=== PATIENT | female | born 1970 | race Caucasian/White ===

== ENCOUNTER 2022-04-11 23:57 | Emergency (ER) | payer SELFPAY ==
[~2022-04-11] VITALS: Ht 157.5 cm; Wt 55.6 kg
[2022-04-12 00:25] VITALS: BP 139/84
--- NOTE | 2022-04-12 00:31 | NUR ---
pt taken to bed 12.
--- NOTE | 2022-04-12 00:45 | NUR ---
GUILHERME EUBANKS ASSESSING PT AT BEDSIDE
[2022-04-12] MEDS ORDERED: LIDOCAINE MPF 1% 10 MG/ML VIAL INJ ONE (00:50)
[2022-04-12] MEDS ORDERED: cephALEXin 500 MG CAP PO ONE (00:50)
[2022-04-12] MEDS ORDERED: SULFAMETH/TRIMETH DS 800/160MG 1 TAB PO ONE (00:50)
--- NOTE | 2022-04-12 00:53 | NUR ---
52 Y.O F BIB SELF C/O 08/02 LEFT BIG TOE PAIN X5/16. PT STATES BACK IN FEBRUARY SHE HAD A PEDICURE DONE, PAIN BEGAN AND WOULD SUBSIDE, [place] TOE GOT WORSE. + SWELLING, WARM TO TOUCH AND REDNESS PRESENT. PT STATES HAS HAD NO FEVER. PT L BIG TOE HAS SLIGHT SWELLING AND PURPLE IN BOTTOM CORNER OF NAIL. PT RESTING IN BED. DENIES HX RX AND ALLERGIES
[2022-04-12] MEDS ORDERED: BACITRACIN OINT 500 UNITS/GM PKT TP ONE ×2 (01:20→01:24)
[2022-04-12] MEDS ORDERED: IBUP-2213 PO (01:22)
[2022-04-12] MEDS ORDERED: CEPH500C16 PO (01:22)
[2022-04-12] MEDS ORDERED: SULF-59 PO (01:22)
[2022-04-12 01:33] VITALS: BP 139/84
--- NOTE | 2022-04-12 01:34 | NUR ---
Patient discharged with v/s stable. Written and verbal after care instructions given and explained. Patient alert, oriented and verbalized understanding of instructions. Ambulatory with steady gait. All questions addressed prior to discharge. ID band removed. Patient advised to follow up with PMD. Rx of KEFLEX, IBUPROPHEN, AND BACTRIM given. Patient educated on indication of medication including possible reaction and side effects. Opportunity to ask questions provided and answered.
== END 2022-04-12 01:34 | disposition home or self-care (01) ==
LOC: MED 23:57
DX: L03.032 Cellulitis of left toe (principal); Z79.2 Long term (current) use of antibiotics; Z79.1 Long term (current) use of non-steroidal anti-inflammatories (NSAID)
CPT/HCPCS: 10060; 99284; J2001